=== PATIENT | male | born 1945 | race Caucasian/White ===

== ENCOUNTER → 2017-02-02 | Outpatient (REF) ==
[2017-02-02 08:40] LABS: MEAN CORPUSCULAR HEMOGLOBIN 25.8 pg (27.0-33.0); MEAN CORPUSCULAR HGB CONC 31.4 g/dl (32.0-36.5); MEAN CORPUSCULAR VOLUME 82.1 fl (80.0-96.0); RED CELL DISTRIBUTION WIDTH 15.7 % (11.5-14.5); WHITE BLOOD COUNT 6.1 K/mm3 (4.0-10.0)
[2017-02-02 08:42] LABS: INR 2.55
[2017-02-02 09:25] LABS: ANION GAP 8 MEQ/L (8-16); BLOOD UREA NITROGEN 23 MG/DL (7-18); CALCIUM LEVEL 9.1 MG/DL (8.8-10.2); CARBON DIOXIDE LEVEL 27 MEQ/L (21-32); CHLORIDE LEVEL 101 MEQ/L (98-107); CREATININE FOR GFR 1.63 MG/DL (0.70-1.30); DIGOXIN LEVEL 0.8 NG/ML (0.5-2.0); GLOMERULAR FILTRATION RATE 44.4 (>42); GLUCOSE, FASTING 134 MG/DL (83-110); POTASSIUM SERUM 4.1 MEQ/L (3.5-5.1); SODIUM LEVEL 136 MEQ/L (136-145); TOTAL IRON BINDING CAPACITY 208 UG/DL (250-450); TOTAL PROTEIN 7.4 GM/DL (6.4-8.2)
[2017-02-02 13:01] LABS: FOLATE 22.7 NG/ML (>5.4); VITAMIN B12 LEVEL 346 PG/ML (247-911)
[2017-02-06 10:37] LABS: ALBUMIN % 36.1 % (55.8-66.1)
[2017-02-06 10:38] LABS: ALBUMIN 2.67 GM/DL (3.29-5.55); GAMMA GLOBULIN % 14.2 % (11.1-18.8)
== END ==
LOC: SKLAB2 07:00
PROVIDERS: ATTEND Internal Medicine
DX: I48.91 Unspecified atrial fibrillation (principal); J44.9 Chronic obstructive pulmonary disease, unspecified

== ENCOUNTER → 2017-02-06 | Outpatient (REF) ==
--- NOTE | 2017-02-06 19:29 | ECGEPIP ---
Stationary ECG Study [facility] Test Date: 2017-02-06 Pat Name: RICARDO LOUIS Department: Room: - Gender: M [employer]: : 1945 Requested By: Dwayne Parker Order Number: [id number] Reading MD: Ricardo White Measurements Intervals [place] Rate: 76 P: AR: 0 QRS: 75 QRSD: 118 T: 134 QT: 364 QTc: 411 Interpretive Statements Underlying atrial flutter with controlled ventricular response. Left ventricular hypertrophy. Could not rule out prior IWMI. No prior tracing for comparison. Clinical correlation advised Electronically Signed On 02-06-2017 19:29:04 EDT by Ricardo White
--- NOTE | 2017-02-06 21:01 | REP ---
Chest PA and lateral 02/06/2017: Clinical history: Pleural effusion. Two views of the chest with no prior studies show the lung tompkins well inflated. There is no lateral pleural thickening or apical scarring. Blunting of the CP angles in the frontal or lateral view to suggest effusion. There is basilar fibrotic change in the lingula and infrahilar lower lobes. This could obscure nodule or other lesion. No gross cardiomegaly or vascular redistribution. Pulmonary arteries are prominent centrally suggesting pulmonary artery hypertension. Bullous emphysematous changes mid and upper lung zone. The aorta is normal for age. Airway is intact. Sternotomy wires and clips in mediastinum are noted. Airway midline. Degenerative changes in the spine and shoulders without compression deformity. Impression: 1. 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 No cardiomegaly, edema, effusion or dense consolidation. The fibrotic changes in the lingula and infrahilar lower lobes on both sides might obscure disease. Signed by You Ngo MD 02/06/2017 09:34 P
== END ==
LOC: SKLAB2 10:28
PROVIDERS: ATTEND Internal Medicine
DX: J90 Pleural effusion, not elsewhere classified (principal); R19.7 Diarrhea, unspecified

== ENCOUNTER → 2017-02-09 | Outpatient (REF) ==
[2017-02-09 08:44] LABS: INR 3.35
[2017-02-09 08:45] LABS: MEAN CORPUSCULAR HEMOGLOBIN 25.1 pg (27.0-33.0); MEAN CORPUSCULAR HGB CONC 30.5 g/dl (32.0-36.5); MEAN CORPUSCULAR VOLUME 82.1 fl (80.0-96.0); WHITE BLOOD COUNT 6.2 K/mm3 (4.0-10.0)
== END ==
LOC: EEVIPCON → SKLAB2 07:00
PROVIDERS: ATTEND Internal Medicine
DX: I48.91 Unspecified atrial fibrillation (principal); Z51.81 Encounter for therapeutic drug level monitoring; Z79.01 Long term (current) use of anticoagulants

== ENCOUNTER → 2017-02-13 | Outpatient (REF) ==
--- NOTE | 2017-02-15 09:18 | NOCOX ---
DATE OF STUDY: 02/12/2017 INTERPRETATION: Recording nocturnal oximetry was performed on room air. A total of 6 hours and 44 minutes of data was reviewed. Mean oxygen saturation for this study was 94% with a minimum recorded value of 88%. He spent all but 12 second of the night with saturations greater than the 90% percentile. 1-2% variation seen at times in the SpO2 waveform. IMPRESSION: 1. Acceptable overnight oxymetry on room air.
== END ==
LOC: SKLAB2 11:43
PROVIDERS: ATTEND Internal Medicine
DX: R06.9 Unspecified abnormalities of breathing (principal)

== ENCOUNTER → 2017-02-16 | Outpatient (REF) ==
[2017-02-16 09:13] LABS: INR 1.48
== END ==
LOC: SKLAB2 09:00
PROVIDERS: ATTEND Internal Medicine
DX: I48.91 Unspecified atrial fibrillation (principal)

== ENCOUNTER → 2017-02-20 | Outpatient (REF) ==
[2017-02-20 09:42] LABS: MEAN CORPUSCULAR HEMOGLOBIN 26.2 pg (27.0-33.0); MEAN CORPUSCULAR HGB CONC 30.7 g/dl (32.0-36.5); MEAN CORPUSCULAR VOLUME 85.2 fl (80.0-96.0); RED CELL DISTRIBUTION WIDTH 18.5 % (11.5-14.5); WHITE BLOOD COUNT 9.2 K/mm3 (4.0-10.0)
[2017-02-20 09:48] LABS: INR 1.71
[2017-02-20 10:12] LABS: CALCIUM LEVEL 9.1 MG/DL (8.8-10.2); CREATININE FOR GFR 1.72 MG/DL (0.70-1.30); DIGOXIN LEVEL 1.1 NG/ML (0.5-2.0); GLOMERULAR FILTRATION RATE 41.7 (>42); POTASSIUM SERUM 3.6 MEQ/L (3.5-5.1)
== END ==
LOC: SKLAB2 07:00
PROVIDERS: ATTEND Internal Medicine
DX: J44.9 Chronic obstructive pulmonary disease, unspecified (principal); D64.9 Anemia, unspecified